=== PATIENT | female | born 1970 | race Two or more races ===

== ENCOUNTER 2022-09-20 20:17 | Emergency (ER) | payer BC ==
[2022-09-20 20:41] VITALS: BP 162/89; PULSE 92; RESP 16; TEMP 98.9; BMI 41.5
== END 2022-09-20 23:13 | disposition home or self-care (01) ==
LOC: FER 20:17
DX: H53.9 Unspecified visual disturbance (principal); R51.9 Headache, unspecified; G43.B0 Ophthalmoplegic migraine, not intractable
CPT/HCPCS: 70450-TC; 99284-25